=== PATIENT | female | born 1955 | race Two or more races ===

== ENCOUNTER 2019-12-24 07:15 | Inpatient (IN) | payer OTHER ==
[~2019-12-24] VITALS: Ht 154.9 cm; Wt 67.6 kg
[2019-12-24] MEDS ORDERED: SYNTHROID100 MCG PO (09:38)
== END 2020-01-01 11:46 | disposition home or self-care (01) | DRG 737 ==
LOC: O/R 12-30 05:30 → OB/GYN 12-30 05:30
PROVIDERS: ADMIT Obstetrics & Gynecology Gynecologic Oncology; ATTEND Obstetrics & Gynecology Gynecologic Oncology
PROC: 0UT70ZZ Resection of Bilateral Fallopian Tubes, Open Approach (ICD-10-PCS; 2019-12-30)
PROC: 0UT20ZZ Resection of Bilateral Ovaries, Open Approach (ICD-10-PCS; 2019-12-30)
PROC: 07BC0ZX Excision of Pelvis Lymphatic, Open Approach, Diagnostic (ICD-10-PCS; 2019-12-30)
PROC: 0UT90ZZ Resection of Uterus, Open Approach (ICD-10-PCS; principal; 2019-12-30 07:15)
DX: C56.1 Malignant neoplasm of right ovary (principal); C78.5 Secondary malignant neoplasm of large intestine and rectum; C78.6 Secondary malignant neoplasm of retroperitoneum and peritoneum; C79.82 Secondary malignant neoplasm of genital organs; D62 Acute posthemorrhagic anemia